=== PATIENT | female | born 1930 | race Caucasian/White ===

== ENCOUNTER → 2017-01-31 | Outpatient (CLI) | payer MEDICARE, BC ==
[2017-01-31 12:29] LABS: ALKALINE PHOSPHATASE 96 U/L (45-117); ALT (GPT) 52 U/L (10-53); ANION GAP 9 MEQ/L (5-15); AST (GOT) 45 U/L (15-37); BICARBONATE 30.5 MEQ/L (21.0-32.0); BLOOD UREA NITROGEN 13 MG/DL (7-18); CHLORIDE 101 MEQ/L (98-107); GLOMERULAR FILTRATION RATE 59 ML/MIN (>89); GLUCOSE,FASTING 83 MG/DL (74-99); LDL CHOLESTEROL 89 MG/DL (0-99); POTASSIUM 3.8 MEQ/L (3.5-5.1); SODIUM (NA) 140 MEQ/L (136-145); TOTAL BILIRUBIN ADULT 0.5 MG/DL (0.2-1.0)
== END ==
LOC: PLAB 08:27
PROVIDERS: ATTEND Family Medicine
DX: E78.2 Mixed hyperlipidemia (principal); R00.0 Tachycardia, unspecified
CPT/HCPCS: 36415; 80053; 80061; 84443

== ENCOUNTER → 2017-05-01 | Outpatient (CLI) | payer MEDICARE, BC ==
[~2017-05-01] MED LIST: AMIO0.1T PO; AMOX500T PO; APIX2.5T PO; ATOR10TA15 PO; DILT30TA PO; DILT60TA PO; FOSA70TA PO; GABA100C4 PO; HYDR-3533 PO; LEVO25TA4 PO; MULTTAB67 PO; PROM25TA10 PO; VITA-136; ZOVI400T PO
== END ==
LOC: PLAB 09:23
PROVIDERS: ATTEND Family Medicine
DX: E03.9 Hypothyroidism, unspecified (principal)
CPT/HCPCS: 36415; 84439; 84443

== ENCOUNTER 2017-06-14 03:09 | Emergency (ER) | payer MEDICARE, BC ==
[~2017-06-14] VITALS: Ht 160 cm; Wt 50.6 kg
[2017-06-14 03:14] VITALS: BP 197/89; PULSE 72; RESP 18; TEMP 98.3; O2SAT 96
[2017-06-14] MEDS ORDERED: MULTTAB67 PO (03:51)
[2017-06-14] MEDS ORDERED: AMIO0.1T PO (03:51)
[2017-06-14] MEDS ORDERED: ATOR10TA15 PO (03:51)
[2017-06-14] MEDS ORDERED: DILT60TA PO (03:51)
[2017-06-14] MEDS ORDERED: FOSA70TA PO (03:51)
[2017-06-14] MEDS ORDERED: LEVO25TA4 PO (03:51)
[2017-06-14] MEDS ORDERED: VITA-136 (03:51)
[2017-06-14] MEDS ORDERED: APIX2.5T PO (03:51)
[2017-06-14 03:52] VITALS: BP 158/78; PULSE 75; RESP 16; O2SAT 9; O2SAT 96
--- NOTE | 2017-06-14 03:53 | PD ---
HPI Chief Complaint: Back/ Neck Pain or Injury Time Seen by Provider: 03:46 Travel History International Travel<30 days: No Contact w/Intl Traveler<30days: No Traveled to known affect area: No History of Present Illness HPI 87-year-old female presents to the emergency department by private transportation the care of her spouse for complaint of 3 days of right posterior neck and right posterior head pain. Patient denies any known injury. Patient has not noticed any rash. Patient denies any visual disturbance, change in mentation, neck stiffness, fever, chills, chest pain, shortness of breath, or upper or lower extremity numbness tingling or weakness. Patient denies any injury. Patient does have history of atrial fibrillation, pacemaker , Eliquis use, hypothyroidism, dyslipidemia and psoriatic arthritis. Patient rates her pain as 8/10 in intensity. Patient has taken acetaminophen without relief. Patient states she presents at this time because her pain is interfering with her sleeping. Patient did not take nonsteroidal anti- inflammatory medications because of Eliquis use. PFSH Past Medical History Narrative Medical Atrial fibrillation dyslipidemia hypothyroidism psoriatic arthritis; occasional alcohol use; nursing notes reviewed Cardiovascular Problems: Yes High Cholesterol: Yes Diminished Hearing: No Hypertension: Yes Medical other: Yes (Hamertoe and bunion on right foot) Thyroid Disease: Yes Tetanus Vaccination: Unknown Influenza Vaccination: Yes : 3 Past Surgical History Eye Surgery: Yes (Cataracts) Pacemaker: Yes Other Surgery: Yes (Pacemaker ) Social History Alcohol Use: Yes (Glass of wine nightly) Tobacco Use: No Substance Use: No Allergies-Medications (Allergen,Severity, Reaction): Coded Allergies: codeine (Verified Allergy, Intermediate, Nausea, 06/14/17) Reported Meds & Prescriptions Reported Meds & Active Scripts Active Lortab (Hydrocodone-Acetaminophen) 5-325 Mg Tab 0.5 Tab PO Q6H PRN Phenergan (Promethazine HCl) 25 Mg Tablet 12.5-25 Mg PO ONCE Reported Multiple Vitamin 1 Tab 1 Tab PO DAILY Vitamin E (Vitamin E Acetate) 400 Unit Capsule Amiodarone (Amiodarone HCl) 100 Mg Tab 100 Mg PO DAILY Fosamax (Alendronate Sodium) 70 Mg Tab 70 Mg PO Q7D Diltiazem (Diltiazem HCl) 60 Mg Tab 60 Mg PO QID Eliquis (Apixaban) 2.5 Mg Tab 2.5 Mg PO BID Atorvastatin (Atorvastatin Calcium) 10 Mg Tab 10 Mg PO HS Levothyroxine (Levothyroxine Sodium) 25 Mcg Tab 25 Mcg PO DAILY Review of Systems Except as stated in HPI: all other systems reviewed are Neg Physical Exam Narrative GENERAL: Well-developed well-nourished female in no acute distress no respiratory distress SKIN: Warm and dry. HEAD: Atraumatic. Normocephalic. Palpable tenderness to the base and posterior right scalp area no vesicular rash or erythematous based rash; no frontal, temporal, or parietal scalp tenderness EYES: Pupils equal and round. No scleral icterus. No injection or drainage. ENT: No nasal bleeding or discharge. Mucous membranes pink and moist. NECK: Trachea midline. No JVD. Supple no nuchal rigidity no meningismus no decreased range of motion no tenderness to direct palpation along the cervical spine no lymphadenopathy CARDIOVASCULAR: Regular rate and rhythm. RESPIRATORY: No accessory muscle use. Clear to auscultation. Breath sounds equal bilaterally. GASTROINTESTINAL: Abdomen soft, non-tender, nondistended. Hepatic and splenic margins not palpable. MUSCULOSKELETAL: Extremities without clubbing, cyanosis, or edema. No obvious deformities. NEUROLOGICAL: Awake and alert. No obvious cranial nerve deficits. GCS 15. Motor grossly within normal limits. Five out of 5 muscle strength in the arms and legs. Normal speech. PSYCHIATRIC: Appropriate mood and affect; insight and judgment normal. Data Data Last Documented VS Vital Signs Date Time Temp Pulse Resp B/P (MAP) Pulse Ox O2 Delivery O2 Flow Rate FiO2 06/14/17 03:52 75 16 158/78 (104) 96 Room Air 06/14/17 03:[address] Brain W/O Iv Contrast(Rout) (06/14/17 ) Ondansetron Odt (Zofran Odt) (06/14/17 06:00) Acetamin-Hydrocod 325-5 Mg ([place] 5-325 (06/14/17 06:00) MDM Medical Decision Making Medical Screen Exam Complete: Yes Emergency Medical Condition: Yes Medical Record Reviewed: Yes Interpretation(s) CT brain CONCLUSION: Ventriculomegaly age and clinical significance uncertain. Otherwise negative noncontrast head CT. Mando Machuca MD on June 14, 2017 at 5:26 Board Certified Radiologist. This report was verified electronically. Differential Diagnosis Trapezius strain, shingles, occipital neuralgia, cervical radiculopathy, ICH, temporal arteritis Narrative Course Patient with reproducible scalp tenderness however in view of alkaline phosphatase use and worsening symptoms will obtain CT brain noncontrast no indication at this time for CT of the cervical spine as patient has fluid non- antalgic movement of the cervical spine. No focality on neurologic exam. CT results discussed in detail with the patient including the noted enlarged ventricles and need for close follow-up with her primary care provider regarding her focal scalp pain and possibility for shingles as well as the ventricular enlarged size on CAT scan. Patient understands and states that she will follow-up with Dr. Alvarez Patient is stable for outpatient management Diagnosis Primary Impression: Scalp pain Referrals: Antwon Alvarez MD call for appointment Patient Instructions: General Instructions, Narcotic given in the ED Additional Instructions: Apply moist heat to affected area intermittently for comfort as needed May take pain medication as prescribed take one half tablet of pain medication as often as every 6 hours as needed for pain relief; be aware that narcotic pain medication can increased risk for fall, delay reaction time, cause constipation, use medication only as needed May use Phenergan medication to help prevent nausea and/or vomiting associated with side effect of narcotic use; use medication as needed use half tablet up to a whole tablet relates may cause drowsiness Continue chronic medications as chronically prescribed Follow-up with your primary care provider Return to the emergency department for any concerns or change in condition Monitor area for development of rash Med/Other Pt SpecificInfo: Prescription(s) given Scripts Hydrocodone-Acetaminophen (Lortab) 5-325 Mg Tab 0.5 TAB PO Q6H Y for PAIN, #7 TAB 0 Refills Prov: Zenaida Parada MD 06/14/17 Promethazine (Phenergan) 25 Mg Tablet 12.5-25 MG PO ONCE for Nausea/Vomiting, #7 TAB 0 Refills Prov: Zenaida Parada MD 06/14/17 Disposition: 01 DISCHARGE HOME Condition: Stable Zenaida Parada MD Jun 14, 2017 03:53
[2017-06-14] MEDS ORDERED: PROM25TA10 PO (05:13)
[2017-06-14] MEDS ORDERED: HYDR-3533 PO (05:13)
--- NOTE | 2017-06-14 05:29 | RADRPT ---
EXAM DATE/TIME: 06/14/2017 04:15 [facility] COMPARISON: No previous studies available for comparison. INDICATIONS : Cephalgia. RADIATION DOSE: 57.76 CTDIvol (mGy) MEDICAL HISTORY : Hypertension. SURGICAL HISTORY : None. ENCOUNTER: Initial ACUITY: 1 day PAIN SCALE: 8/10 LOCATION: occipital TECHNIQUE: Multiple contiguous axial images were obtained of the head. Using automated exposure control and adj ustment of the mA and/or kV according to patient size, radiation dose was kept as low as reasonably a chievable to obtain optimal diagnostic quality images. DICOM format image data is available electro nically for review and comparison. FINDINGS: CEREBRUM: Moderate ventriculomegaly. No evidence of midline shift, mass lesion, hemorrhage or acute infarction . No extra-axial fluid collections are seen. Chronic low attenuation in the periventricular white ma tter. POSTERIOR FOSSA: The cerebellum and brainstem are intact. The 4th ventricle is midline. The cerebellopontine angle i s unremarkable. EXTRACRANIAL: The visualized portion of the orbits is intact. SKULL: The calvaria is intact. No evidence of skull fracture. CONCLUSION: Ventriculomegaly age and clinical significance uncertain. Otherwise negative noncontrast head CT. Mando Machuca MD on June 14, 2017 at 5:26 Board Certified Radiologist. This report was verified electronically.
[2017-06-14] MEDS ORDERED: ONDANSETRON ODT 4 MG TAB PO ONE (06:00)
[2017-06-14] MEDS ORDERED: ACETAMINOPHEN/HYDROcodone 325 MG/5 MG TAB PO ONE (06:00)
[2017-06-14 06:26] VITALS: BP 132/78
== END 2017-06-14 06:28 | disposition home or self-care (01) ==
LOC: PHED 03:09
DX: M54.2 Cervicalgia (principal); R51 Headache; I10 Essential (primary) hypertension; I48.91 Unspecified atrial fibrillation; E03.9 Hypothyroidism, unspecified; E78.5 Hyperlipidemia, unspecified
CPT/HCPCS: 70450; 99284

== ENCOUNTER 2017-06-21 09:47 | Emergency (ER) | payer MEDICARE, BC ==
[~2017-06-21] VITALS: Ht 160 cm; Wt 50.4 kg
[~2017-06-21 09:47] MED LIST changes: -AMOX500T PO; -DILT30TA PO; -GABA100C4 PO; -ZOVI400T PO
[2017-06-21 09:48] VITALS: BP 138/67; PULSE 83; RESP 16; TEMP 98.5; O2SAT 97
[2017-06-21] MEDS ORDERED: AMOX500T PO (10:28)
[2017-06-21] MEDS ORDERED: DILT30TA PO (10:28)
[2017-06-21] MEDS ORDERED: GABA100C4 PO (10:28)
[2017-06-21] MEDS ORDERED: ZOVI400T PO (10:28)
[2017-06-21] MEDS ORDERED: DIPHTH/TETANUS/ACEL PERTUSSIS (BOOSTER) 0.5 ML VIAL/PFS IM ONE (10:30)
[2017-06-21] MEDS ORDERED: TETANUS/DIPHTHERIA TOXOID ADULT 0.5 ML VIAL IM ONE (10:45)
--- NOTE | 2017-06-21 11:00 | RADRPT ---
EXAM DATE/TIME: 06/21/2017 10:40 [facility] COMPARISON: CT BRAIN W/O CONTRAST, June 14, 2017, 4:15. INDICATIONS : Trauma. Fell yesterday. RADIATION DOSE: 58.01 CTDIvol (mGy) MEDICAL HISTORY : Cardiovascular disease. Hypertension. SURGICAL HISTORY : Pacemaker. ENCOUNTER: Initial ACUITY: 1 day PAIN SCALE: 2/10 LOCATION: cranial TECHNIQUE: Multiple contiguous axial images were obtained of the head. Using automated exposure control and adj ustment of the mA and/or kV according to patient size, radiation dose was kept as low as reasonably a chievable to obtain optimal diagnostic quality images. DICOM format image data is available electro nically for review and comparison. FINDINGS: CEREBRUM: Moderate ventricle megaly No evidence of midline shift, mass lesion, hemorrhage or acute infarction. No extra-axial fluid collections are seen. POSTERIOR FOSSA: The cerebellum and brainstem are intact. The 4th ventricle is midline. The cerebellopontine angle i s unremarkable. EXTRACRANIAL: The visualized portion of the orbits is intact. SKULL: The calvaria is intact. No evidence of skull fracture. CONCLUSION: Ventricles are prominent but stable. Negative for acute process. Alex Agosto MD FACR on June 21, 2017 at 10:57 Board Certified Radiologist. This report was verified electronically.
--- NOTE | 2017-06-21 11:06 | RADRPT ---
EXAM DATE/TIME: 06/21/2017 10:50 [facility] COMPARISON: No previous studies available for comparison. INDICATIONS : Left tibia/fibula pain & anterior laceration post fall yesterday. MEDICAL HISTORY : Hypercholesterolemia. Hypertension Thyroid disease. SURGICAL HISTORY : Pacemaker. ENCOUNTER: Initial ACUITY: 2 days PAIN SCORE: 2/10 LOCATION: Left anterior tibia/fibula FINDINGS: Two view examination of the left tibia demonstrates no evidence of fracture or dislocation. Bony min eralization is normal. The soft tissue structures are intact. CONCLUSION: Negative for fracture or radiopaque foreign body. Alex Agosto MD FACR on June 21, 2017 at 11:04 Board Certified Radiologist. This report was verified electronically.
--- NOTE | 2017-06-21 11:27 | PD ---
HPI Chief Complaint: Fall Time Seen by Provider: 10:01 Travel History International Travel<30 days: No Contact w/Intl Traveler<30days: No Traveled to known affect area: No History of Present Illness HPI Patient is an 87-year-old female who comes in after a slip and fall yesterday. She says she fell in the bathroom around 3 in the morning. She fell right on her face and knocked out her teeth. She did see an oral surgeon and a dentist yesterday and had her lip repaired. She says she comes in because she is concerned that she hurt her left leg. She does take Eliquis. She denies headache, nausea, vomiting, dizziness. She does have some pain to her left leg. She does not know when her last tetanus vaccine was. PFSH Past Medical History Cardiovascular Problems: Yes High Cholesterol: Yes Diminished Hearing: No Hypertension: Yes Thyroid Disease: Yes Tetanus Vaccination: > 5 Years Influenza Vaccination: No ?: Not : 3 Past Surgical History Eye Surgery: Yes (Cataracts) Pacemaker: Yes Other Surgery: Yes (Pacemaker ) Social History Alcohol Use: Yes (occass wine) Tobacco Use: No (quit in 1959) Substance Use: No Allergies-Medications (Allergen,Severity, Reaction): Coded Allergies: codeine (Verified Adverse Reaction, Intermediate, Nausea, 06/21/17) Reported Meds & Prescriptions Reported Meds & Active Scripts Active Lortab (Hydrocodone-Acetaminophen) 5-325 Mg Tab 0.5 Tab PO Q6H PRN Phenergan (Promethazine HCl) 25 Mg Tablet 12.5-25 Mg PO ONCE Reported Gabapentin Unknown Strength Cap Unknown Dose PO BID Zovirax (Acyclovir) Unknown Strength Tab Unknown Dose PO BID Amoxicillin 500 Mg Tab 500 Mg PO BID Diltiazem (Diltiazem HCl) Unknown Strength Tab Unknown Dose PO DAILY Multiple Vitamin 1 Tab 1 Tab PO DAILY Amiodarone (Amiodarone HCl) 100 Mg Tab 100 Mg PO DAILY Fosamax (Alendronate Sodium) 70 Mg Tab 70 Mg PO Q7D Eliquis (Apixaban) 2.5 Mg Tab 2.5 Mg PO BID Atorvastatin (Atorvastatin Calcium) 10 Mg Tab 10 Mg PO HS Levothyroxine (Levothyroxine Sodium) 25 Mcg Tab 25 Mcg PO DAILY Review of Systems General / Constitutional: No: Fever, Chills Eyes: No: Blurred Vision HENT: No: Headaches, Lightheadedness Cardiovascular: No: Chest Pain or Discomfort Respiratory: No: Shortness of Breath Gastrointestinal: No: Nausea, Vomiting Musculoskeletal: Positive: Pain, No: Edema Skin: Positive Other (laceration) Neurologic: No: Weakness, Dizziness, Paresthesia, Incontinence Physical Exam Narrative GENERAL: Awake and alert, in no acute distress. SKIN: Focused skin assessment warm/dry. Sutured upper lip, no surrounding erythema. Abrasion to the left melchor. HEAD: Atraumatic. Normocephalic. EYES: Pupils equal and round. No scleral icterus. Extraocular movements intact. ENT: Mucous membranes pink and moist. Broken upper teeth. NECK: Trachea midline. No JVD. No cervical spine tenderness. CARDIOVASCULAR: Regular rate and rhythm. No murmur appreciated. RESPIRATORY: No accessory muscle use. Clear to auscultation. Breath sounds equal bilaterally. MUSCULOSKELETAL: No obvious deformities. No clubbing. No cyanosis. No edema. Tender to palpation of the left melchor. NEUROLOGICAL: Awake and alert. No obvious cranial nerve deficits. Motor grossly within normal limits. Normal speech. Data Data Last Documented VS Vital Signs Date Time Temp Pulse Resp B/P (MAP) Pulse Ox O2 Delivery O2 Flow Rate FiO2 06/21/17 10:13 16 97 Room Air 06/21/17 09:48 98.5 83 138/67 (90) Orders Orders Ct Brain W/O Iv Contrast(Rout) (06/21/17 ) Tibia/Fibula (Ap/Lat) (06/21/17 ) [id number] (Booster) Inj (Boostrix (06/21/17 10:30) Tetanus/Diphtheria Tox Adult (Tetanus/Di (06/21/17 10:45) MDM Medical Decision Making Medical Screen Exam Complete: Yes Emergency Medical Condition: Yes Medical Record Reviewed: Yes Differential Diagnosis Tib-fib fracture versus contusion versus laceration versus ICH Narrative Course Patient is an 87-year-old female who comes in after a slip and fall yesterday. Exam shows a wound to her left melchor as well as a sutured wound to her lip. CT head performed shows no acute abnormalities x-ray of the left leg shows no acute abnormalities. Tetanus updated. Wound cleaned and dressed. Patient advised to change the dressing daily. Advised to keep the wound clean and dry. Advised follow-up with her doctor. Advised to return to the ED as needed for any worsening symptoms. Diagnosis Primary Impression: Fall Qualified Codes: W19.XXXA - Unspecified fall, initial encounter Additional Impressions: Contusion Qualified Codes: S80.12XA - Contusion of left lower leg, initial encounter Abrasion Patient Instructions: Abrasion (ED), General Instructions Additional Instructions: Follow-up with your doctor. Keep her wound clean and dry. Return to the ED as needed for any worsening symptoms. Disposition: 01 DISCHARGE HOME Condition: Stable Carmen Bah MD Jun 21, 2017 11:27
== END 2017-06-21 11:39 | disposition home or self-care (01) ==
LOC: PHED 09:47
DX: S80.12XA Contusion of left lower leg, initial encounter (principal); S80.812A Abrasion, left lower leg, initial encounter; I10 Essential (primary) hypertension; E78.00 Pure hypercholesterolemia, unspecified; E07.9 Disorder of thyroid, unspecified; Z23 Encounter for immunization; W01.0XXA Fall on same level from slipping, tripping and stumbling without subsequent striking against object, initial encounter; Y92.89 Other specified places as the place of occurrence of the external cause
CPT/HCPCS: 70450; 73590; 90471; 90714

== ENCOUNTER → 2017-09-19 | Outpatient (CLI) | payer MEDICARE, BC ==
[~2017-09-19] MED LIST changes: +AMOX500T PO; +DILT30TA PO; -DILT60TA PO; +GABA100C4 PO; -VITA-136; +ZOVI400T PO
[2017-09-19 13:59] LABS: ALBUMIN 4.1 GM/DL (3.4-5.0); ALT (GPT) 29 U/L (10-53); AST (GOT) 31 U/L (15-37); BICARBONATE 31.6 MEQ/L (21.0-32.0); BLOOD UREA NITROGEN 12 MG/DL (7-18); CHLORIDE 103 MEQ/L (98-107); CHOLESTEROL 189 MG/DL (120-200); CREATININE 0.75 MG/DL (0.50-1.00); GLOMERULAR FILTRATION RATE 73 ML/MIN (>89); GLUCOSE,FASTING 92 MG/DL (74-99); SODIUM (NA) 140 MEQ/L (136-145)
[2017-09-19 14:07] LABS: ALKALINE PHOSPHATASE 104 U/L (45-117); CHOLESTEROL/ HDL RATIO 2.52 RATIO; FREE T4 1.51 NG/DL (0.76-1.46); LDL CHOLESTEROL 95 MG/DL (0-99); TOTAL BILIRUBIN ADULT 0.5 MG/DL (0.2-1.0); TOTAL PROTEIN 8.1 GM/DL (6.4-8.2); TRIGLYCERIDES 93 MG/DL (42-150)
== END ==
LOC: PLAB 08:35
PROVIDERS: ATTEND Family Medicine
DX: E78.2 Mixed hyperlipidemia (principal); E03.9 Hypothyroidism, unspecified
CPT/HCPCS: 36415; 80053; 80061; 84439; 84443